=== PATIENT | female | born 1980 | race Hispanic/Latino ===

== ENCOUNTER → 2018-10-27 | Outpatient (CLI) | payer BC ==
--- NOTE | 2018-10-27 12:39 | Diagnostic Imaging Report ---
Exam: Right heel radiographs-2 views Clinical History: Right heel pain Comparison: None. Findings: No evidence of acute fracture, malalignment, or soft tissue abnormality. There is a plantar calcaneal spur. Impression: No acute radiographic abnormality Signed by: Dr. Bo Huang MD on 10/27/2018 12:36 PM
== END ==
LOC: RAD 11:48
PROVIDERS: ATTEND Family Medicine
DX: M79.671 Pain in right foot (principal)

== ENCOUNTER → 2021-06-25 | Outpatient (CLI) | payer BC | LOC: RAD 15:03 | PROVIDERS: ATTEND Family Medicine | DX: Z09 Encounter for follow-up examination after completed treatment for conditions other than malignant neoplasm (principal); U07.1 COVID-19; J12.82 Pneumonia due to coronavirus disease 2019 | CPT/HCPCS: 71046 ==